=== PATIENT | male | born 1960 | race Caucasian/White ===

== ENCOUNTER 2016-08-16 15:33 | Emergency (ER) | payer MEDICARE, OTHER ==
[2016-08-16] MEDS ORDERED: NITROGLYCERIN 0.4 MG/TAB BTL SL PRN (15:56)
[2016-08-16] MEDS ORDERED: ASPIRIN 81 MG TAB.CHEW PO ONE (15:57)
--- NOTE | 2016-08-16 16:01 | ERNOTE ---
Chest Pain/Cardiac HPI Chief Complaint: Chest Pain Time Seen by Provider: 08/16/16 15:44 Source: patient Exam Limitations: no limitations Immunizations: IMMUNIZATION HX Immunizations Up to Date Yes History of Influenza Vaccine Yes Allergies/Adverse Reactions: Allergies varenicline [From Chantix] Adverse Reaction (Verified 08/16/16 15:55) venlafaxine Adverse Reaction (Verified 08/16/16 15:55) Home Medications: HOME MEDICATIONS Aspirin 81 mg PO DAILY 03/04/12 [Last Taken Unknown] Atenolol 50 mg PO DAILY 03/04/12 [Last Taken Unknown] Atorvastatin Calcium 20 mg PO DAILY 03/04/12 [Last Taken Unknown] Benazepril HCl 20 mg PO DAILY 03/04/12 [Last Taken Unknown] Esomeprazole Magnesium [Nexium] 20 mg PO DAILY 03/04/12 [Last Taken Unknown] Nitroglycerin [Nitrostat] 0.4 mg SL DAILY PRN 03/04/12 [Last Taken 08/16/16 0.4 mg] Alprazolam [Alprazolam ER] 2 mg PO BID 02/28/15 [Last Taken Unknown] Cholecalciferol (Vitamin D3) [Vitamin D3] 1,000 unit PO DAILY 02/28/15 [Last Taken Unknown] Cyanocobalamin [Vitamin B-12] 1,000 mcg PO DAILY 02/28/15 [Last Taken Unknown] lamoTRIgine [Lamictal] 150 mg PO DAILY 02/28/15 [Last Taken Unknown] Albuterol Sulfate [Ventolin HFA] 2 puff IH 08/16/16 [Last Taken Unknown] Montelukast Sodium [Singulair] 10 mg PO 08/16/16 [Last Taken Unknown] Narrative: Patient has had chest pain on and off for about two days, at first intermittent , today constant, left central with radiation to back and shoulder, nausea, no vomiting, no other symptoms, nothings make symptoms better or worse, no change with nitro (but prescription is older) He had an CA ten years ago, had stent placed by Dr Herrera, another stent two years later Timing: constant Severity/Quality: moderate, aching, tightness Location: left chest Chest Pain Radiation: shoulders Activities at Onset: none Modifying Factors - Improves: Present: nothing. Absent: nitroglycerin, movement , rest Modifying Factors - Worsens: Present: nothing. Absent: breathing, exercise, movement Nitro Today/Relief: 0.4 mg x 3 Aspirin Treatment Today: 81 mg x 1 Prior Chest Pain/Cardiac Workup: Reports: prior chest pain, heart attack Prior Treatment: Denies: recently seen, currently on antibiotics Review of Systems - Review of Systems Constitutional: Absent: recent illness, fever ENT: Absent: nose congestion, sore throat Respiratory: Absent: shortness of breath Cardiology: Present: See HPI, chest pain Gastrointestinal/Abdominal: Present: nausea. Absent: vomiting, diarrhea, abdominal pain Genitourinary: Present: no symptoms reported Musculoskeletal: Absent: back pain Neurological: Absent: headache, weakness, numbness - Patient's Past Medical History Patient History - Medical: Anxiety, Depression Patient History - Cardiac/Respiratory: COPD, Hypertension, Hyperlipidemia, Myocardial Infarction Patient History - Cancer: No Hx of Cancer Patient History - Surgical Procedures: Back Surgery, Other, Hernia Repair - Social History Living Situations: home Abuse History: No History of abuse Psych History: Hx of Anxiety, Hx of Depression, Hx of Bipolar Disorder Smoking Status: Current every day smoker Cigarettes Packs Per Day: 1 Have you smoked in the past 12 months: Yes Do you dip or chew tobacco: No Alcohol Use: none Drug Use: marijuana - Immunizations Immunizations Up to Date: Yes History of Influenza Vaccine: Yes Physical Exam - Physical Exam General Appearance: Present: wd/wn, alert, no apparent distress Eye Exam: Normal inspection: bilateral, PERRL: bilateral Ears, Nose, Throat: Present: normal ENT inspection Respiratory: Present: no respiratory distress, normal breath sounds, no accessory muscle use, chest nontender, lungs clear Cardiovascular/Chest: Present: regular rate, rhythm, no murmur Gastrointestinal/Abdominal: Present: normal bowel sounds, nontender, nondistended, soft Extremity Exam: Present: no edema Neurological Exam: Present: alert, oriented, normal mood/affect, no motor/ sensory deficits Skin Exam: Present: normal color, warm/dry ED Progress - Results and Orders Patient's Lab Results:: I have reviewed the patient's lab results. - Vital Signs Patient's Vital Signs:: I have reviewed the patient's vital signs. Vital Signs: Vital Signs 08/16/16 15:44 Temperature 36.9 C Pulse Rate 58 L Respiratory 12 Rate Blood Pressure 134/74 O2 Sat by Pulse 100 Oximetry - EKG EKG: NSR, no ST T wave changes, unchanged from - 02/2015 EKG read: Interp. by me - X-Ray X-Ray #1 X-Ray: chest - hyperinflation, no acute changes Interpretation: Interp. by me - Progress/Reassessment Chief Complaint: Chest Pain Progress Note-Subjective: 08/16/16 16:13 pain better but not resolved after first nitro 08/16/16 16:45 pain better, briefly resolved with second nitro, but returns to mild pain discussed test results, because of recurrent chest pain, similar symptoms prior to last stent placement recommend transfer to broadcast systems engineer. Discussed [facility] rules about transfer to closest facility, patient request transfer to [facility] for continuity of care with Dr Herrera, is willing to sign papers 08/16/16 16:52 call to [facility], discussed with broadcast systems engineer director of national sales (Dr Durbin) accepted patient for direct admit to telemetry ([id number]), discussed with Lola CASILLAS, call report to [phone] Departure - Departure Clinical Impression: Unstable angina Disposition: [facility] in [place] Condition: Good
[2016-08-16] MEDS ORDERED: ASPIRIN 81 MG TAB.CHEW ONE (16:03)
[2016-08-16 16:15] LABS: Hemoglobin 10.6 gm/dL (13.5-18.0); Mean Cell Volume 103.6 fl (78-100); Mean Corpuscular Hemoglobin 34.3 pg (27-31); Mean Corpuscular Hgb Conc 33.1 g/dl (32-36); Mean Platelet Volume 9.3 fl (6.0-9.5); Neutrophil # 2.3 K/mm3 (1.3-6.0); Neutrophil % 44.9 % (42-75.0); Platelet Count 293 K/mm3 (150-450); Red Blood Count 3.09 M/mm3 (4.7-6.0); Red Cell Distribution Width 14.3 % (11.5-14.0); White Blood Count 5.2 K/mm3 (4.0-10.5)
[2016-08-16 16:26] LABS: Prothrombin Time (Patient) 9.7 Seconds (9.4-11.4)
[2016-08-16 16:33] LABS: ALT 21 U/L (19-67); AST 21 U/L (0-48); Albumin * 3.9 gm/dl (3.4-5.0); Alkaline Phosphatase * 54 U/L (50-170); Anion Gap 12.9 mmol/L (6.8-13.8); Bilirubin, Total 0.3 mg/dL (0.0-1.1); Blood Urea Nitrogen 21 mg/dL (6-23); Ca. Corrected For Albumin 8.4 mg/dL (8.4-10.2); Calcium * 8.6 mg/dL (7.9-10.9); Carbon Dioxide 28.7 mmol/L (24-32.6); Chloride 107 mmol/L (97-106); Glucose * 101 mg/dL (70-110); INR 0.93 INR (0.90-1.10); Partial Thrombolplastin Time 23.8 Seconds (24-32); Potassium 4.6 mmol/L (3.4-4.6); Sodium 144 mmol/L (132-142); Total Protein 7.1 gm/dL (6.2-8.2)
[2016-08-16 16:35] LABS: Troponin I Less than 0.017 ng/ml (0.00-0.10)
--- OUTSIDE RECORDS SUMMARY | 2016-08-16 16:45 | XMS REPORT | Continuity of Care Document ---
:1960 Author Organization [facility] ([facility]) Address [address] [place] [address] Phone [phone] Care Team Providers Name Role Phone Greg Corona Primary Care Provider [phone] Source Comments This disclosure is being made pursuant to the Care Everywhere program, applicable federal and state laws, and may not contain all informaitonavailable regarding this patient.[facility] ([facility]) Active Allergies and Adverse Reactions No Known Allergies Current Medications Prescription Sig. Disp. Refills Start Date End Date Status ALPRAZolam 2 mg Take 2 mg by mouth Active tablet 2 times daily as needed for Anxiety. oxyCODONE-acetaminoph Take 1 tablet by Active en 5-325 mg per mouth every 4 hours tablet as needed Do Not exceed 4000 mg of acetaminophen per 24 hours. [address] 0[address] 0.4 mg under Active SL tablet the tongue every 5 minutes as needed fexofenadine 180 mg Take 180 mg by Active tablet mouth daily aspirin 81 mg EC Take 81 mg by mouth Active tablet daily lamoTRIgine Take 150 mg by Active (LAMICTAL) 150 mg mouth daily tablet esomeprazole (NEXIUM) Take 20 mg by mouth Active 20 mg EC capsule every morning before breakfast atorvastatin 80 mg Take 20 mg by mouth Active tablet every evening. cyanocobalamin daily. 05/03/2012 Active (VITAMIN B-12) 1,000 mcg tablet albuterol INH as needed. 10/15/2010 Active atenolol 50 mg tablet Take 50 mg by mouth 0 04/26/2015 Active daily. polyethylene glycol as needed. 0 04/26/2015 Active 3350 (MIRALAX) 17 gram/dose powder benazepril 20 mg Take 40 mg by mouth 0 04/26/2015 Active tablet daily. ibuprofen 200 mg Take 200-800 mg by Active tablet mouth every 6 hours as needed. cholecalciferol Take 1,000 Units by Active (VITAMIN D3) 1,000 mouth daily. unit capsule cyclobenzaprine 10 mg Take 1 tablet (10 60 tablet 0 07/10/2015 Active tablet mg total) by mouth 2 times daily as needed. montelukast 10 mg daily. 5 12/20/2015 Active tablet clindamycin 1 % gel apply a thin layer 0 02/19/2016 Active to the affected area(s) by topical route 2 times per day for 14 days Active Problems Not on file Most Recent Encounters Date Type Specialty Providers Description 07/10/2016 Office Visit Neurology Clinton Mariee MD Dx: Tinnitus, Crow Vaughan subjective, bilateral MD (Primary Dx) 07/10/2016 Hospital Encounter Radiology Tate Maldonado MD Dx: Tinnitus , bilateral 07/10/2016 Hospital Encounter Radiology Tate Maldonado MD Dx: Tinnitus , bilateral Social History Tobacco Use Types Packs/Day Years Used Date Current Every Day Smoker Cigarettes 1 30 Smokeless Tobacco: Never Used Tobacco Cessation:Counseling Given: Yes Comments: Alcohol Use Drinks/Week oz/Week Comments No Last Filed Vital Signs Vital Sign Reading Time Taken Blood Pressure 137/75 07/10/2016 2:19 PM CDT Pulse 68 07/10/2016 2:19 PM CDT Temperature 37.1 C (98.8 F) 11/23/2014 10:24 AM CDT Respiratory Rate - - Height 1.727 m (5' 7.99") 07/10/2016 2:19 PM CDT Weight 79.9 kg (176 lb 2.4 oz) 07/10/2016 2:19 PM CDT Body Mass Index 26.79 07/10/2016 2:19 PM CDT Oxygen Saturation 100% 07/10/2016 2:19 PM CDT Plan of Care Date Type Specialty Providers Description 09/02/2016 Appointment Audiology Reyes Richey MD Chief Comp: Patient [address] [place] [address] Visit [phone] (Fax) 09/02/2016 Appointment Otolaryngology Reyes Richey MD [address] [place] [address] [phone] (Fax) Chief Comp: Patient Toby Motta V, 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 [address] [place] [address] [phone] (Fax) Reported Reason For Visit 09/02/2016 Appointment Audiology Reyes Richey MD Chief Comp: Patient [address] [place] [address] Visit [phone] (Fax) Health Maintenance Due Date Last Done Comments HCV Screening 1960 Hepatitis B Vaccine (1 of 3 - Primary Series) 1960 Tdap Vaccine 1973 Lipid Disorder Screening 1980 MMR Vaccine 1980 Td Vaccine 1980 Pneumococcal Vaccine (1 of 1 - PPSV23) 1981 Colonoscopy 09/10/2012 Prostate Cancer Screening 2012 Influenza Vaccine: Seasonal (Season Ended) 2016 Results from Last 3 Months MRV HEAD W/WO CONTRAST ([id number]) (07/10/2016 1:57 PM) Impressions Impression: 1. Opacification of right mastoid air cells. Suggest clinical correlation for mastoiditis. 2. Left acute maxillary sinusitis. 3. No venous sinus thrombosis. Narrative Procedure: MRI BRAIN W/WO CONTRAST ([id number]), MRV HEAD W/WO CONTRAST ([id number]) Indication: Bilateral pulsatile tinnitus. Technique: 1. Multisequence, multiplanar MRI of the brain before and after the uneventful administration of10 mL Gadavist IV contrast. 2. Multisequence, multiplanar MRV of the head before and after the uneventful administration of10 mL Gadavist IV contrast. Source and Mip images were obtained and reviewed. Comparison: None. Findings: - MRI Brain: There is no acute infarct, intracranial mass, or intra or extra-axial hemorrhage. No suspicious lesions or areas of abnormal enhancement. The ventricles, cortical sulci and basal cisterns are symmetric and appropriate. Normal brainstem and posterior fossa. The pituitary and suprasellar region are unremarkable. The major intracranial flow-voids are preserved. Normal orbits. There is moderate mucosal thickening of left maxillary sinus with few bubbly lucencies. Moderate opacification of right mastoid air cells. Normal bone marrow signal. - MRV Head: There is normal appearance of the deep and dural venous sinuses without evidence of thrombosis. Left transverse sinus is hypoplastic. Visualized cortical veins are unremarkable. Procedure Note Sloan, Incoming Imaging Results - WedJul 10, 2016 3:21 PM CDT Procedure: MRI BRAIN W/WO CONTRAST ([id number]), MRV HEAD W/WO CONTRAST ([id number]) Indication: Bilateral pulsatile tinnitus. Technique: 1. Multisequence, multiplanar MRI of the brain before and after the uneventful administration of 10 mL Gadavist IV contrast. 2. Multisequence, multiplanar MRV of the head before and after the uneventful administration of 10 mL Gadavist IV contrast. Source and Mip images were obtained and reviewed. Comparison: None. Findings: - MRI Brain: There is no acute infarct, intracranial mass, or intra or extra-axial hemorrhage. No suspicious lesions or areas of abnormal enhancement. The ventricles, cortical sulci and basal cisterns are symmetric and appropriate. Normal brainstem and posterior fossa. The pituitary and suprasellar region are unremarkable. The major intracranial flow-voids are preserved. Normal orbits. There is moderate mucosal thickening of left maxillary sinus with few bubbly lucencies. Moderate opacification of right mastoid air cells. Normal bone marrow signal. - MRV Head: There is normal appearance of the deep and dural venous sinuses without evidence of thrombosis. Left transverse sinus is hypoplastic. Visualized cortical veins are unremarkable. IMPRESSION Impression: 1. Opacification of right mastoid air cells. Suggest clinical correlation for mastoiditis. 2. Left acute maxillary sinusitis. 3. No venous sinus thrombosis. MRI BRAIN W/WO CONTRAST ([id number]) (07/10/2016 1:57 PM) Impressions Impression: 1. Opacification of right mastoid air cells. Suggest clinical correlation for mastoiditis. 2. Left acute maxillary sinusitis. 3. No venous sinus thrombosis. Narrative Procedure: MRI BRAIN W/WO CONTRAST ([id number]), MRV HEAD W/WO CONTRAST ([id number]) Indication: Bilateral pulsatile tinnitus. Technique: 1. Multisequence, multiplanar MRI of the brain before and after the uneventful administration of10 mL Gadavist IV contrast. 2. Multisequence, multiplanar MRV of the head before and after the uneventful administration of10 mL Gadavist IV contrast. Source and Mip images were obtained and reviewed. Comparison: None. Findings: - MRI Brain: There is no acute infarct, intracranial mass, or intra or extra-axial hemorrhage. No suspicious lesions or areas of abnormal enhancement. The ventricles, cortical sulci and basal cisterns are symmetric and appropriate. Normal brainstem and posterior fossa. The pituitary and suprasellar region are unremarkable. The major intracranial flow-voids are preserved. Normal orbits. There is moderate mucosal thickening of left maxillary sinus with few bubbly lucencies. Moderate opacification of right mastoid air cells. Normal bone marrow signal. - MRV Head: There is normal appearance of the deep and dural venous sinuses without evidence of thrombosis. Left transverse sinus is hypoplastic. Visualized cortical veins are unremarkable. Procedure Note S[facility], Incoming Imaging Results - WedJul 10, 2016 3:21 PM CDT Procedure: MRI BRAIN W/WO CONTRAST ([id number]), MRV HEAD W/WO CONTRAST ([id number]) Indication: Bilateral pulsatile tinnitus. Technique: 1. Multisequence, multiplanar MRI of the brain before and after the uneventful administration of 10 mL Gadavist IV contrast. 2. Multisequence, multiplanar MRV of the head before and after the uneventful administration of 10 mL Gadavist IV contrast. Source and Mip images were obtained and reviewed. Comparison: None. Findings: - MRI Brain: There is no acute infarct, intracranial mass, or intra or extra-axial hemorrhage. No suspicious lesions or areas of abnormal enhancement. The ventricles, cortical sulci and basal cisterns are symmetric and appropriate. Normal brainstem and posterior fossa. The pituitary and suprasellar region are unremarkable. The major intracranial flow-voids are preserved. Normal orbits. There is moderate mucosal thickening of left maxillary sinus with few bubbly lucencies. Moderate opacification of right mastoid air cells. Normal bone marrow signal. - MRV Head: There is normal appearance of the deep and dural venous sinuses without evidence of thrombosis. Left transverse sinus is hypoplastic. Visualized cortical veins are unremarkable. IMPRESSION Impression: 1. Opacification of right mastoid air cells. Suggest clinical correlation for mastoiditis. 2. Left acute maxillary sinusitis. 3. No venous sinus thrombosis.
--- OUTSIDE RECORDS SUMMARY | 2016-08-16 16:45 | XMS REPORT | Continuity of Care Document ---
:1960 Author Organization [facility] Address Unavailable [address] [address] Care Team Providers Name Role Phone Unavailable Primary Care Provider Unavailable Source Comments This disclosure is being made pursuant to the Heart Metabolics program and maynot contain all information available regarding this patient.[facility] Active Allergies and Adverse Reactions Not on File Current Medications Be aware that medications may not be up to date as of this document. Alwaysverify current medications with the patient. Not on file Active Problems Not on file Social History Tobacco Use Types Packs/Day Years Used Date Never Assessed Plan of Care Health Maintenance Due Date Last Done Comments Tetanus/Pertussis (1 - Tdap) 1981 Colonoscopy 2012 Well Adult Visit 2012 Retired-INFLUENZA VACCINE 11/28/2015 Results from Last 3 Months Not on file
[2016-08-16] MEDS ORDERED: HEPARIN SODIUM,PORCINE 5,000 UNITS/ML VIAL IV ONE (17:00)
[2016-08-16] MEDS ORDERED: HEPARIN SODIUM,PORCINE/D5W 25,000 UNITS/500 ML BAG IV ONE (17:10)
[2016-08-16] MEDS ORDERED: HEPARIN SODIUM,PORCINE 5,000 UNITS/ML VIAL ONE (17:10)
[2016-08-16] MEDS ORDERED: HEPARIN SODIUM,PORCINE/D5W 25,000 UNITS/500 ML BAG IV SCH (17:15)
[2016-08-16 17:19] VITALS: BP 132/69
== END 2016-08-16 17:44 | disposition short-term general hospital (02) ==
LOC: ER 15:33
DX: I20.0 Unstable angina (principal); I10 Essential (primary) hypertension; Z72.0 Tobacco use; F41.8 Other specified anxiety disorders; J44.9 Chronic obstructive pulmonary disease, unspecified; E78.5 Hyperlipidemia, unspecified; I25.2 Old myocardial infarction

== ENCOUNTER 2017-02-08 17:16 | Emergency (ER) | payer MEDICARE, OTHER ==
[2017-02-08] MEDS ORDERED: NORMAL SALINE 1,000 ML IV ONE (17:31)
--- NOTE | 2017-02-08 17:31 | ERNOTE ---
Chest Pain/Cardiac HPI Chief Complaint: Chest Pain Time Seen by Provider: 02/08/17 17:20 Source: patient Exam Limitations: no limitations Immunizations: IMMUNIZATION HX Immunizations Up to Date Yes History of Influenza Vaccine Yes Allergies/Adverse Reactions: Allergies varenicline [From Chantix] Adverse Reaction (Verified 02/08/17 17:24) venlafaxine Adverse Reaction (Verified 02/08/17 17:24) Home Medications: HOME MEDICATIONS Aspirin 81 mg PO DAILY 03/04/12 [Last Taken Unknown] Benazepril HCl 20 mg PO BID 03/04/12 [Last Taken Unknown] Nitroglycerin [Nitrostat] 0.4 mg SL DAILY PRN 03/04/12 [Last Taken 08/16/16 0.4 mg] Alprazolam [Alprazolam ER] 2 mg PO BID 02/28/15 [Last Taken Unknown] Cholecalciferol (Vitamin D3) [Vitamin D3] 1,000 unit PO DAILY 02/28/15 [Last Taken Unknown] Cyanocobalamin [Vitamin B-12] 1,000 mcg PO DAILY 02/28/15 [Last Taken Unknown] lamoTRIgine [Lamictal] 150 mg PO DAILY 02/28/15 [Last Taken Unknown] Albuterol Sulfate [Ventolin HFA] 2 puff IH QID PRN 08/16/16 [Last Taken Unknown] Montelukast Sodium [Singulair] 10 mg PO DAILY 08/16/16 [Last Taken Unknown] Atenolol [Tenormin] 25 mg PO DAILY 09/07/16 [Last Taken Unknown] Clopidogrel Bisulfate [Plavix] 75 mg PO DAILY 09/07/16 [Last Taken Unknown] Pantoprazole Sodium [Protonix] 20 mg PO DAILY 09/07/16 [Last Taken Unknown] Rosuvastatin Calcium [Crestor] 40 mg PO DAILY 09/07/16 [Last Taken Unknown] Narrative: Patient has had chest pain for three days more or less constant. The pain started in the left upper abdomen but then moved more to the left chest. He started to take nitro earlier today with some intermittent relieve but no resolution of symptoms. He took a total of seven nitro before calling EMS. He had an OK in 2006 and 2008, was seen her in 07/2016 for chest pain ( that felt similar to current symptoms), transferred to [facility] and had another stent placed for a 90% stenosis. the pain is currently at a 4/ Timing: intermittent Severity/Quality: moderate, pressure Location: left chest Chest Pain Radiation: shoulders Activities at Onset: none Modifying Factors - Improves: Present: nothing Modifying Factors - Worsens: Present: nothing Nitro Today/Relief: 0.4 mg x 3, provided at home, mild relief Aspirin Treatment Today: 81 mg x 4, provided at home Associated Symptoms: Present: denies symptoms. Absent: syncope, shortness of breath, diaphoresis, fever/chills Prior Chest Pain/Cardiac Workup: Reports: prior chest pain, heart attack, cardiac cath Prior Treatment: Denies: recently seen, currently on antibiotics Review of Systems - Review of Systems Constitutional: Absent: recent illness, fever ENT: Absent: nose congestion, sore throat Respiratory: Present: shortness of breath. Absent: cough Cardiology: Present: See HPI, chest pain Gastrointestinal/Abdominal: Present: nausea. Absent: vomiting, diarrhea, abdominal pain Genitourinary: Present: no symptoms reported Musculoskeletal: Absent: back pain Neurological: Absent: headache, weakness, numbness - Patient's Past Medical History Patient History - Medical: Anxiety, Depression Patient History - Cardiac/Respiratory: COPD, Hypertension, Hyperlipidemia, Myocardial Infarction Patient History - Cancer: No Hx of Cancer Patient History - Surgical Procedures: Back Surgery, Cardiac stent, Other, Hernia Repair - Social History Abuse History: No History of abuse Psych History: Hx of Anxiety, Hx of Depression, Hx of Bipolar Disorder Smoking Status: Current every day smoker Cigarettes Packs Per Day: 1 Alcohol Use: none Drug Use: marijuana - Immunizations Immunizations Up to Date: Yes History of Influenza Vaccine: Yes Physical Exam - Physical Exam General Appearance: Present: wd/wn, alert, no apparent distress Head Exam: Present: normal inspection Ears, Nose, Throat: Present: normal pharynx Respiratory: Present: no respiratory distress, normal breath sounds, no accessory muscle use, chest nontender, lungs clear Cardiovascular/Chest: Present: regular rate, rhythm, no murmur Gastrointestinal/Abdominal: Present: normal bowel sounds, nontender, nondistended, soft Extremity Exam: Present: no edema Neurological Exam: Present: alert, oriented, normal mood/affect Skin Exam: Present: normal color, warm/dry ED Progress - Results and Orders Patient's Lab Results:: I have reviewed the patient's lab results. - Vital Signs Patient's Vital Signs:: I have reviewed the patient's vital signs. Vital Signs: Vital Signs 02/08/17 02/08/17 17:19 17:25 Temperature 36.7 C Pulse Rate 58 L 61 Respiratory 11 L Rate Blood Pressure 119/66 O2 Sat by Pulse 100 Oximetry - EKG EKG: NSR - sinus bradycardia, no ST T wave changes, unchanged from - 07/2016, other - no acute changes EKG read: Interp. by me - X-Ray X-Ray #1 X-Ray: chest - hyperinflated, no acute changes Interpretation: Interp. 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 02/08/17 18:44 call to [facility], discussed with Dr Carson (cardiology) accepted patient for transfer, start nitro drip 02/08/17 19:02 discussed with Jalil (NRP) doesn't think that patient is appropriate for our facility 02/08/17 19:29 called telemetrie floor, patient will go to fifth floor telemetrie, room 5115 patient more comfortable Departure Clinical Impression: Unstable angina - Departure Disposition: [facility] in [place] Condition: Stable Referrals: Greg Corona DO [Primary Care Provider] -
[2017-02-08] MEDS ORDERED: MORPHINE SULFATE 2 MG/ML DISP.SYRIN IV ONE (17:36)
[2017-02-08] MEDS ORDERED: MORPHINE SULFATE 2 MG/ML DISP.SYRIN ONE (17:39)
[2017-02-08 17:47] LABS: Hematocrit 31.3 % (42.0-52.0); Hemoglobin 10.5 gm/dL (13.5-18.0); Mean Corpuscular Hemoglobin 34.5 pg (27-31); Mean Corpuscular Hgb Conc 33.5 g/dl (32-36); Mean Platelet Volume 9.7 fl (6.0-9.5); Neutrophil # 2.8 K/mm3 (1.3-6.0); Neutrophil % 41.4 % (42-75.0); Platelet Count 239 K/mm3 (150-450); Red Blood Count 3.04 M/mm3 (4.7-6.0); Red Cell Distribution Width 14.1 % (11.5-14.0); White Blood Count 6.7 K/mm3 (4.0-10.5)
[2017-02-08 18:00] LABS: Prothrombin Time (Patient) 9.6 Seconds (9.0-11.0)
[2017-02-08 18:01] LABS: INR 0.96 INR (0.90-1.10)
[2017-02-08 18:08] LABS: ALT 18 U/L (19-67); AST 16 U/L (0-48); Albumin * 3.5 gm/dl (3.4-5.0); Alkaline Phosphatase * 50 U/L (50-170); Anion Gap 11.9 mmol/L (6.8-13.8); BUN/Creatinine Ratio 7.3 (9.0-21.6); Bilirubin, Total 0.4 mg/dL (0.0-1.1); Blood Urea Nitrogen 14 mg/dL (6-23); Ca. Corrected For Albumin 9.1 mg/dL (8.4-10.2); Carbon Dioxide 29.4 mmol/L (24-32.6); Chloride 107 mmol/L (97-106); Glucose * 94 mg/dL (70-110); Potassium 3.3 mmol/L (3.4-4.6); Sodium 145 mmol/L (132-142); Total Protein 6.8 gm/dL (6.2-8.2)
[2017-02-08 18:09] LABS: Troponin I Less than 0.017 ng/ml (0.00-0.10)
[2017-02-08] MEDS ORDERED: NITROGLYCERIN IN 5 % DEXTROSE 50 MG/250 ML INFUS..BTL IV PRN (18:52)
[2017-02-08 19:25] VITALS: BP 130/78
== END 2017-02-08 19:40 | disposition short-term general hospital (02) ==
LOC: ER 17:16
DX: I20.0 Unstable angina (principal); I10 Essential (primary) hypertension; F17.200 Nicotine dependence, unspecified, uncomplicated